=== PATIENT | male | born 1960 | race Caucasian/White ===

== ENCOUNTER → 2017-05-04 | Outpatient (CLI) | payer BC ==
[~2017-05-04] MED LIST: NKHM; PRILOSEC20 M1 PO; TRAZODO50 MG PO; VICODIN 5/500 505 MG PO
== END | disposition home or self-care (01) ==
LOC: US 13:12
DX: K76.0 Fatty (change of) liver, not elsewhere classified (principal); R10.11 Right upper quadrant pain; R11.2 Nausea with vomiting, unspecified

== ENCOUNTER → 2018-07-09 | Outpatient (CLI) | payer OTHER | LOC: US 10:19 | DX: I65.22 Occlusion and stenosis of left carotid artery (principal) ==

== ENCOUNTER 2022-05-04 17:56 | Emergency (ER) | payer BC ==
[~2022-05-04] VITALS: Ht 177.8 cm; Wt 89.8 kg
== END 2022-05-04 18:36 | disposition home or self-care (01) ==
LOC: ED 17:56
DX: U07.1 COVID-19 (principal); Z79.899 Other long term (current) drug therapy

== ENCOUNTER 2023-08-21 03:31 | Inpatient (IN) | payer SELFPAY ==
[~2023-08-21] VITALS: Ht 182.8 cm; Wt 86.0 kg
[2023-08-21] VITALS (7 sets, daily range): BP systolic 91–148; BP diastolic 44–90
[~2023-08-21 03:31] MED LIST changes: +ACETAMINOPHEN325 M2 PEG; +AKWA TEARS 15 M15 ML OPH; +ARTIFICIAL TEAR1514 OU; +ASPIRIN CHEWABL81 MG PEG; +BISACODYL10 MG R; +CHLORHEXIDINE473 M1 PO; +DECADRON4 MG PEG; +FLEET ENEMA EX230 M1 R; +Ipratropium Brom3 ML INH; +LOVENOX30 MG/0.3 SC; +MILK OF MA2400 MG/11 PEG; +MIRALAX POWDER17 G1 PEG; +MODAFINIL100 M1 PO; +SENNA8.8 MG/5 M PEG; +ZOSYN 3.373.375 GM/1 IV
[2023-08-21 05:48] LABS: ALKALINE PHOSPHATASE 119 U/L (46-116); BUN 35 mg/dl (9-23); CHLORIDE 103 mmol/L (98-107); POTASSIUM 4.6 mmol/L (3.4-5.1); SGPT/ALT 36 U/L (5-49); TOTAL PROTEIN 6.8 gm/dL (6.0-8.0)
[2023-08-21 05:49] LABS: ACT PARTIAL THROMBO TIME 23.3 SECONDS (20.0-32.1)
[2023-08-21] MEDS ORDERED: IRON325 M1 PEG (06:02)
[2023-08-21 06:16] LABS: MEAN CELL VOLUME 91.5 fl (80.0-94.0); MEAN CORPUSCULAR HGB 28.1 pg (27.0-31.0); MEAN CORPUSCULAR HGB CONC 30.7 g/dl (33.0-37.0); MEAN PLATELET VOLUME 10.1 fl (9.6-12.3); PLATELET COUNT AUTOMATED 328 10*3/uL (130-400); RED CELL DISTRI WIDTH 14.6 % (0-14.5); WHITE BLOOD COUNT 6.1 10*3/uL (4.8-10.8)
[2023-08-21 06:17] LABS: MANUAL DIFF REFLEX YES
[2023-08-21 06:39] LABS: BILIRUBIN 1+ (Negative); BLOOD 3+ (Negative); CLARITY Turbid (Clear); COLOR Red (Yellow); GLUCOSE Negative (Negative); KETONE Negative (Negative); LEUKO ESTERASE 3+ (Negative); NITRITE Positive (Negative); SPECIFIC GRAVITY 1.015 (1.001-1.030); UROBILINOGEN 0.2 E.U./dl (0.0-1.0)
[2023-08-21 06:43] LABS: OVALOCYTES FEW; PLATELET SUFFICIENCY NORMAL (NORMAL); POLYCHROMASIA SLIGHT; TOTAL CELLS COUNTED 100 #CELLS
[2023-08-21 06:56] LABS: PH 8.5 (4.5-8.0)
[2023-08-21 06:59] LABS: BACTERIA 3+; RBC TNTC rbc/hpf (0-2); WBC TNTC wbc/hpf (0-5)
[2023-08-21 09:04] LABS: ABG BASE EXCESS -4.2 mmol/L (-2.0-2.0); ARTERIAL BLOOD GAS PH 7.253 (7.35-7.45)
[2023-08-21] MEDS ORDERED: LAC-HYDRIN FIV226 GM T (09:16)
[2023-08-21 18:03] LABS: HEMATOCRIT 37.2 % (42.0-52.0); MEAN CELL VOLUME 90.7 fl (80.0-94.0); MEAN CORPUSCULAR HGB CONC 30.9 g/dl (33.0-37.0); PLATELET COUNT AUTOMATED 281 10*3/uL (130-400); RED CELL DISTRI WIDTH 14.9 % (0-14.5); WHITE BLOOD COUNT 29.5 10*3/uL (4.8-10.8)
[2023-08-21 18:04] LABS: MANUAL DIFF REFLEX YES
[2023-08-21 18:06] LABS: ABG BASE EXCESS -1.7 mmol/L (-2.0-2.0); ARTERIAL BLOOD GAS PH 7.445 (7.35-7.45)
[2023-08-21 18:24] LABS: ALKALINE PHOSPHATASE 77 U/L (46-116); BUN 39 mg/dl (9-23); CHLORIDE 107 mmol/L (98-107); LIPASE 20 U/L (12-53); POTASSIUM 5.2 mmol/L (3.4-5.1); SGPT/ALT 36 U/L (5-49); TOTAL PROTEIN 6.2 gm/dL (6.0-8.0)
[2023-08-21 18:29] LABS: PLATELET SUFFICIENCY NORMAL (NORMAL); TOTAL CELLS COUNTED 100 #CELLS
[2023-08-21 18:33] LABS: OVALOCYTES FEW
[2023-08-22] VITALS: BP 112/65
[2023-08-22 01:07] LABS: HEMATOCRIT 36.2 % (42.0-52.0); MEAN CELL VOLUME 91.6 fl (80.0-94.0); MEAN CORPUSCULAR HGB 27.8 pg (27.0-31.0); MEAN CORPUSCULAR HGB CONC 30.4 g/dl (33.0-37.0); MEAN PLATELET VOLUME 9.9 fl (9.6-12.3); PLATELET COUNT AUTOMATED 270 10*3/uL (130-400); RED BLOOD COUNT 3.95 10*6/uL (4.50-5.90); RED CELL DISTRI WIDTH 15.1 % (0-14.5); WHITE BLOOD COUNT 24.7 10*3/uL (4.8-10.8)
[2023-08-22 01:08] LABS: MANUAL DIFF REFLEX YES
[2023-08-22 01:25] LABS: ABG BASE EXCESS -11.3 mmol/L (-2.0-2.0); ARTERIAL BLOOD GAS PH 7.333 (7.35-7.45)
[2023-08-22 01:28] LABS: ALKALINE PHOSPHATASE 72 U/L (46-116); BUN 31 mg/dl (9-23); CHLORIDE 107 mmol/L (98-107); POTASSIUM 4.6 mmol/L (3.4-5.1); SGPT/ALT 31 U/L (5-49); TOTAL PROTEIN 6.1 gm/dL (6.0-8.0)
[2023-08-22 01:30] LABS: TOTAL CELLS COUNTED 100 #CELLS
[2023-08-22 01:31] LABS: PLATELET SUFFICIENCY NORMAL (NORMAL)
[2023-08-22 04:00] VITALS: BP 108/62
[2023-08-22 06:07] LABS: HEMATOCRIT 31.4 % (42.0-52.0); MEAN CELL VOLUME 91.8 fl (80.0-94.0); MEAN CORPUSCULAR HGB 28.4 pg (27.0-31.0); MEAN CORPUSCULAR HGB CONC 30.9 g/dl (33.0-37.0); MEAN PLATELET VOLUME 10.2 fl (9.6-12.3); PLATELET COUNT AUTOMATED 226 10*3/uL (130-400); RED BLOOD COUNT 3.42 10*6/uL (4.50-5.90); WHITE BLOOD COUNT 23.3 10*3/uL (4.8-10.8)
[2023-08-22 06:10] LABS: MANUAL DIFF REFLEX YES
[2023-08-22 06:22] LABS: ALKALINE PHOSPHATASE 62 U/L (46-116); BUN 30 mg/dl (9-23); CHLORIDE 107 mmol/L (98-107); POTASSIUM 4.2 mmol/L (3.4-5.1); SGPT/ALT 24 U/L (5-49); TOTAL PROTEIN 5.9 gm/dL (6.0-8.0)
[2023-08-22 06:33] LABS: ABG BASE EXCESS 3.2 mmol/L (-2.0-2.0); ARTERIAL BLOOD GAS PH 7.491 (7.35-7.45)
[2023-08-22 06:48] LABS: OVALOCYTES FEW; PLATELET SUFFICIENCY NORMAL (NORMAL); POLYCHROMASIA SLIGHT; TOTAL CELLS COUNTED 100 #CELLS; TOXIC GRANULATION SLIGHT; VACUOLATION OF NEUTROPHILS SLIGHT
[2023-08-22 08:00] VITALS: BP 98/60
[2023-08-22 08:16] LABS: ABG BASE EXCESS 3.4 mmol/L (-2.0-2.0); ARTERIAL BLOOD GAS PH 7.518 (7.35-7.45)
[2023-08-22 09:45] LABS: ABG BASE EXCESS 1.7 mmol/L (-2.0-2.0); ARTERIAL BLOOD GAS PH 7.526 (7.35-7.45)
[2023-08-22 12:00] VITALS: BP 111/57
[2023-08-22 14:09] LABS: BASO # 0.1 10*3/uL (0.0-0.1); BASO % 0.2 % (0.0-1.0); HEMATOCRIT 28.9 % (42.0-52.0); LYMPH # 1.4 10*3/uL (1.3-4.4); MEAN CORPUSCULAR HGB 28.7 pg (27.0-31.0); MEAN CORPUSCULAR HGB CONC 31.1 g/dl (33.0-37.0); MEAN PLATELET VOLUME 9.5 fl (9.6-12.3); MONO # 1.2 10*3/uL (0.1-1.0); MONO % 5.3 % (3.0-9.0); NEUT # 19.6 10*3/uL (2.3-7.9); NEUT % 87.4 % (47.0-73.0); PLATELET COUNT AUTOMATED 215 10*3/uL (130-400); RED BLOOD COUNT 3.14 10*6/uL (4.50-5.90); WHITE BLOOD COUNT 22.5 10*3/uL (4.8-10.8)
[2023-08-22 14:22] LABS: ABG BASE EXCESS 0.3 mmol/L (-2.0-2.0); ARTERIAL BLOOD GAS PH 7.428 (7.35-7.45)
[2023-08-22 14:35] LABS: ALKALINE PHOSPHATASE 56 U/L (46-116); BUN 27 mg/dl (9-23); CHLORIDE 110 mmol/L (98-107); POTASSIUM 3.9 mmol/L (3.4-5.1); SGPT/ALT 22 U/L (5-49); TOTAL PROTEIN 5.7 gm/dL (6.0-8.0)
[2023-08-22 15:27] LABS: ABG BASE EXCESS 1.3 mmol/L (-2.0-2.0); ARTERIAL BLOOD GAS PH 7.491 (7.35-7.45)
[2023-08-22 16:00] VITALS: BP 107/58
[2023-08-22 20:00] VITALS: BP 116/60
[2023-08-22 22:17] LABS: HEMATOCRIT 29.5 % (42.0-52.0); MEAN CELL VOLUME 92.8 fl (80.0-94.0); MEAN CORPUSCULAR HGB 28.3 pg (27.0-31.0); MEAN CORPUSCULAR HGB CONC 30.5 g/dl (33.0-37.0); MEAN PLATELET VOLUME 10.1 fl (9.6-12.3); PLATELET COUNT AUTOMATED 225 10*3/uL (130-400); RED BLOOD COUNT 3.18 10*6/uL (4.50-5.90); RED CELL DISTRI WIDTH 14.9 % (0-14.5); WHITE BLOOD COUNT 23.1 10*3/uL (4.8-10.8)
[2023-08-22 22:18] LABS: MANUAL DIFF REFLEX YES
[2023-08-22 22:38] LABS: ALKALINE PHOSPHATASE 57 U/L (46-116); BUN 22 mg/dl (9-23); CHLORIDE 112 mmol/L (98-107); POTASSIUM 3.8 mmol/L (3.4-5.1); SGPT/ALT 20 U/L (5-49); TOTAL PROTEIN 5.7 gm/dL (6.0-8.0)
[2023-08-22 22:42] LABS: PLATELET SUFFICIENCY NORMAL (NORMAL); TOTAL CELLS COUNTED 100 #CELLS
[2023-08-23] VITALS: BP 117/62
[2023-08-23 04:00] VITALS: BP 120/62
[2023-08-23 06:11] LABS: HEMATOCRIT 28.1 % (42.0-52.0); MEAN CELL VOLUME 93.4 fl (80.0-94.0); MEAN CORPUSCULAR HGB 28.6 pg (27.0-31.0); MEAN CORPUSCULAR HGB CONC 30.6 g/dl (33.0-37.0); MEAN PLATELET VOLUME 10.4 fl (9.6-12.3); PLATELET COUNT AUTOMATED 231 10*3/uL (130-400); RED BLOOD COUNT 3.01 10*6/uL (4.50-5.90); WHITE BLOOD COUNT 21.8 10*3/uL (4.8-10.8)
[2023-08-23 06:13] LABS: MANUAL DIFF REFLEX YES
[2023-08-23 06:19] LABS: BILIRUBIN Negative (Negative); BLOOD 2+ (Negative); CLARITY Clear (Clear); COLOR Yellow (Yellow); GLUCOSE Negative (Negative); KETONE 1+ (Negative); LEUKO ESTERASE 1+ (Negative); NITRITE Negative (Negative); SPECIFIC GRAVITY 1.025 (1.001-1.030); UROBILINOGEN 0.2 E.U./dl (0.0-1.0)
[2023-08-23 06:49] LABS: ATYPICAL LYMPHS 1 % (0-0); PLATELET SUFFICIENCY NORMAL (NORMAL); POLYCHROMASIA SLIGHT; TOTAL CELLS COUNTED 100 #CELLS
[2023-08-23 06:56] LABS: RBC 31-40 rbc/hpf (0-2); WBC 21-30 wbc/hpf (0-5)
[2023-08-23 06:57] LABS: BACTERIA 1+; URIC ACID CRYSTALS TRACE
[2023-08-23 08:00] VITALS: BP 127/61
[2023-08-23 08:22] LABS: ALKALINE PHOSPHATASE 55 U/L (46-116); BUN 21 mg/dl (9-23); CHLORIDE 113 mmol/L (98-107); POTASSIUM 3.8 mmol/L (3.4-5.1); SGPT/ALT 18 U/L (5-49); TOTAL PROTEIN 5.6 gm/dL (6.0-8.0)
[2023-08-23 08:53] LABS: ABG BASE EXCESS -1.2 mmol/L (-2.0-2.0); ARTERIAL BLOOD GAS PH 7.466 (7.35-7.45)
[2023-08-23 12:00] VITALS: BP 112/56
[2023-08-23 14:13] LABS: BASO % 0.2 % (0.0-1.0); EOS # 0.1 10*3/uL (0.0-0.4); EOS % 0.5 % (1.0-4.0); HEMATOCRIT 28.2 % (42.0-52.0); LYMPH # 1.5 10*3/uL (1.3-4.4); MEAN CELL VOLUME 94.6 fl (80.0-94.0); MEAN CORPUSCULAR HGB 27.9 pg (27.0-31.0); MEAN CORPUSCULAR HGB CONC 29.4 g/dl (33.0-37.0); MEAN PLATELET VOLUME 10.2 fl (9.6-12.3); MONO # 0.9 10*3/uL (0.1-1.0); MONO % 4.7 % (3.0-9.0); NEUT # 16.3 10*3/uL (2.3-7.9); NEUT % 85.3 % (47.0-73.0); PLATELET COUNT AUTOMATED 218 10*3/uL (130-400); RED BLOOD COUNT 2.98 10*6/uL (4.50-5.90); RED CELL DISTRI WIDTH 15.1 % (0-14.5); WHITE BLOOD COUNT 19.1 10*3/uL (4.8-10.8)
[2023-08-23 14:16] LABS: ABG BASE EXCESS -0.7 mmol/L (-2.0-2.0); ARTERIAL BLOOD GAS PH 7.42 (7.35-7.45)
== END 2023-08-23 13:52 | disposition hospice, inpatient (51) | DRG 871 ==
LOC: ED 03:31 → ICCU 06:16 → EDHOLD 06:16 → ICCU 07:23
PROVIDERS: Family Medicine; Internal Medicine; Student in an Organized Health Care Education/Training Program; ADMIT Internal Medicine; ATTEND Internal Medicine
PROC: 03HC33Z Insertion of Infusion Device into Left Radial Artery, Percutaneous Approach (ICD-10-PCS; principal; 2023-08-21)
PROC: 02HV33Z Insertion of Infusion Device into Superior Vena Cava, Percutaneous Approach (ICD-10-PCS; 2023-08-21)
PROC: B548ZZA Ultrasonography of Superior Vena Cava, Guidance (ICD-10-PCS; 2023-08-21)
PROC: 5A1945Z Respiratory Ventilation, 24-96 Consecutive Hours (ICD-10-PCS; 2023-08-21)
PROC: 0B21XFZ Change Tracheostomy Device in Trachea, External Approach (ICD-10-PCS; 2023-08-21)
DX: A41.9 Sepsis, unspecified organism (principal); E43 Unspecified severe protein-calorie malnutrition; N17.0 Acute kidney failure with tubular necrosis; J69.0 Pneumonitis due to inhalation of food and vomit; J96.21 Acute and chronic respiratory failure with hypoxia; I21.A1 Myocardial infarction type 2; E87.20 Acidosis, unspecified; N39.0 Urinary tract infection, site not specified; R65.20 Severe sepsis without septic shock; Z66 Do not resuscitate; Z51.5 Encounter for palliative care; L89.156 Pressure-induced deep tissue damage of sacral region; L89.326 Pressure-induced deep tissue damage of left buttock; L89.316 Pressure-induced deep tissue damage of right buttock; L89.612 Pressure ulcer of right heel, stage 2; L89.620 Pressure ulcer of left heel, unstageable; R31.9 Hematuria, unspecified; K21.00 Gastro-esophageal reflux disease with esophagitis, without bleeding; I10 Essential (primary) hypertension; Z87.820 Personal history of traumatic brain injury; Z79.82 Long term (current) use of aspirin; Z79.899 Other long term (current) drug therapy; Z79.1 Long term (current) use of non-steroidal anti-inflammatories (NSAID); Z68.25 Body mass index [BMI] 25.0-25.9, adult; Z93.0 Tracheostomy status

== ENCOUNTER 2023-08-23 14:40 | Inpatient (IN) | payer OTHER ==
[~2023-08-23] VITALS: Ht 180.3 cm; Wt 85.7 kg
[~2023-08-23 14:40] MED LIST changes: +IRON325 M1 PEG; +LAC-HYDRIN FIV226 GM T
[2023-08-23 14:50] VITALS: BP 125/64
[2023-08-23 16:00] VITALS: BP 118/60
[2023-08-23 16:38] LABS: ABG BASE EXCESS 0.2 mmol/L (-2.0-2.0); ARTERIAL BLOOD GAS PH 7.47 (7.35-7.45)
[2023-08-24] VITALS: BP 112/64
[2023-08-24 08:00] VITALS: BP 102/55
[2023-08-24 16:00] VITALS: BP 96/60
[2023-08-25] VITALS: BP 90/52
[2023-08-25 08:00] VITALS: BP 67/40
[2023-08-25 12:00] VITALS: BP 73/23
== END 2023-08-25 12:20 ==
LOC: ICCU 14:40
PROVIDERS: Student in an Organized Health Care Education/Training Program; ADMIT Internal Medicine; ATTEND Internal Medicine
DX: I21.4 Non-ST elevation (NSTEMI) myocardial infarction (principal); E43 Unspecified severe protein-calorie malnutrition; J69.0 Pneumonitis due to inhalation of food and vomit; N17.0 Acute kidney failure with tubular necrosis; J96.01 Acute respiratory failure with hypoxia; E87.20 Acidosis, unspecified; N39.0 Urinary tract infection, site not specified; Z51.5 Encounter for palliative care; I10 Essential (primary) hypertension; K21.00 Gastro-esophageal reflux disease with esophagitis, without bleeding; Z87.820 Personal history of traumatic brain injury